=== PATIENT | female | born 1975 | race Hispanic/Latino ===

== ENCOUNTER 2017-11-10 18:00 | Emergency (ER) | payer BC, OTHER ==
[2017-11-10 18:22] VITALS: RESP 18; TEMP 98.3; O2SAT 100; BMI 22.3
[2017-11-10] MEDS ORDERED: DiphenhydrAMINE 50 mg/ml Inj IVP STA (18:42)
--- NOTE | 2017-11-10 18:44 | ED PDOC ---
Arrival/HPI - General Time Seen by Provider: 11/10/17 18:32 Historian: Patient - History of Present Illness Narrative History of Present Illness (Text): 11/10/17 18:39 Patient is a 42 year old female with a past medical history of asthma and seasonal allergies, who presents to the Emergency department complaining of chest tightness today. Patient reports that she received an allergy injection in her right arm earlier today by her associate publisher. She subsequently returned home where she started to experience chills, lightheadedness, chest tightness and "gagging sensation", which have improved. Patient reports experiencing similar symptoms in the past. Patient reports she has not taken any Benadryl, which was suggested by her associate publisher. Patient denies any fever, rashes, nausea, vomiting, abdominal pain, shortness of breath, lower extremity edema/pain, and any other complaints at this time. Patient denies any recent travel. PMD: Dr. Bella Time/Duration: Other (Earlier today) Quality: Tightness (chest tightness) Context: Other (After receiving an allergy injection) Past Medical History - Provider Review Nursing Documentation Reviewed: Yes - Infectious Disease Hx of Infectious Diseases: None - Cardiac Hx Cardiac Disorders: No - Pulmonary Hx Respiratory Disorders: Yes Hx Asthma: Yes Hx Bronchitis: Yes - Neurological Hx Neurological Disorder: No - HEENT Hx HEENT Disorder: No - Renal Hx Renal Disorder: No - Endocrine/Metabolic Hx Endocrine Disorders: No - Hematological/Oncological Hx Blood Disorders: No - Integumentary Hx Dermatological Disorder: No - Musculoskeletal/Rheumatological Hx Musculoskeletal Disorders: No Hx Falls: No - Gastrointestinal Hx Gastrointestinal Disorders: No - Genitourinary/Gynecological Hx Genitourinary Disorders: No Other/Comment: MISCARRIAGE X1 - Psychiatric Hx Psychophysiologic Disorder: No Hx Substance Use: No - Surgical History Hx Appendectomy: Yes Other/Comment: TONSILLECTOMY - Anesthesia Hx Anesthesia: Yes Hx Anesthesia Reactions: No Hx Malignant Hyperthermia: No Family/Social History - Physician Review Nursing Documentation Reviewed: Yes Family/Social History: No Known Family HX Smoking Status: Never Smoked Hx Alcohol Use: No Hx Substance Use: No Allergies/Home Meds Allergies/Adverse Reactions: Allergies No Known Allergies Allergy (Verified 10/07/15 11:59) Home Medications: Home Meds Medication Instructions Recorded Confirmed Levocetirizine Dihydrochloride 5 mg PO DAILY 11/10/17 11/10/17 [Xyzal] Review of Systems - Physician Review All systems were reviewed & negative as marked: Yes - Review of Systems Constitutional: Night Sweats. absent: Fevers ENT: Other (gagging sensation) Respiratory: Cough. absent: SOB Cardiovascular: Chest Pain (chest tightness). absent: Edema Gastrointestinal: absent: Abdominal Pain, Nausea, Vomiting Neurological: Other (Lightheadedness) Physical Exam Vital Signs Reviewed: Yes Vital Signs Temp Pulse Resp BP Pulse Ox 11/10/17 20:53 62 18 108/72 100 11/10/17 18:21 98.3 F 53 L 18 128/76 100 Temperature: Afebrile Blood Pressure: Normal Pulse: Bradycardic Respiratory Rate: Normal Appearance: Positive for: Well-Appearing, Non-Toxic, Comfortable Pain Distress: None Mental Status: Positive for: Alert and Oriented X 3 - Systems Exam Head: Present: Atraumatic, Normocephalic Pupils: Present: PERRL Extroacular Muscles: Present: EOMI Conjunctiva: Present: Normal Mouth: Present: Moist Mucous Membranes Neck: Present: Normal Range of Motion Respiratory/Chest: Present: Clear to Auscultation, Good Air Exchange. No: Respiratory Distress, Accessory Muscle Use Cardiovascular: Present: Regular Rate and Rhythm, Normal S1, S2. No: Murmurs Abdomen: No: Tenderness, Distention, Peritoneal Signs Back: Present: Normal Inspection Upper Extremity: Present: Normal Inspection. No: Cyanosis, Edema, Swelling (No swelling at site of allergy injection (right arm)) Lower Extremity: Present: Normal Inspection. No: Edema Neurological: Present: GCS=15, CN II-XII Intact, Speech Normal Skin: Present: Warm, Dry, Normal Color. No: Rashes Psychiatric: Present: Alert, Oriented x 3, Normal Insight, Normal Concentration Medical Decision Making ED Course and Treatment: 11/10/17 18:52 Impression: Patient is a 42 year old female who complains of chest tightness and lightheadedness s/p allergy injection. Patient notes symptoms have improved. Differential Diagnosis included but are not limited to: ACS vs Anxiety vs Allergic Reaction Plan: -- Chest xray -- EKG -- Labs -- Aspirin and Benadryl -- Reassess and disposition Progress Notes: Labs reviewed. Patient has a negative troponin. She was given Pepcid for epigastric/chest burning sensation. After treatment and reevaluation, patient felt much better and no longer had symptoms. No rash. No trouble breathing. No chest pain. Patient will follow up with primary care doctor in 1-2days. Advised to return to the ED if symptoms worsen or any other concern. - Lab Interpretations Lab Results: 11/10/17 19:21 11/10/17 19:21 Lab Results 11/10/17 19:21: Sodium 140, Potassium 3.8, Chloride 102, Carbon Dioxide 26, Anion Gap 16, BUN 13, Creatinine 0.7, Est GFR ( Amer) > 60, Est GFR (Non- Af Amer) > 60, Random Glucose 86, Calcium 9.7, Magnesium 1.9, Total Bilirubin 0.4, AST 30, ALT 28, Alkaline Phosphatase 55, Lactate Dehydrogenase 377, Total Creatine Kinase 61, Troponin I < 0.01, Total Protein 7.7, Albumin 4.6, Globulin 3.1, Albumin/Globulin Ratio 1.5 11/10/17 19:21: WBC 6.3, RBC 4.41, Hgb 13.8, Hct 41.2, MCV 93.4, MCH 31.3, MCHC 33.5, RDW 12.8, Plt Count 209, MPV 9.8, Gran % 49.1 L, Lymph % (Auto) 40.4 H, Mills % (Auto) 8.7 H, Eos % (Auto) 1.6, Baso % (Auto) 0.2, Gran # 3.09, Lymph # ( Auto) 2.5, Mills # (Auto) 0.6, Eos # (Auto) 0.1, Baso # (Auto) 0.01 I have reviewed the lab results: Yes - RAD Interpretation Radiology Orders: 11/10/17 18:42 CHEST PORTABLE [RAD] Stat - Medication Orders Current Medication Orders: Discontinued Medications Aspirin (Aspirin) 325 mg PO STAT STA Stop: 11/10/17 18:42 Last Admin: 11/10/17 19:26 Dose: Diphenhydramine HCl (Benadryl) 50 mg IVP STAT STA Stop: 11/10/17 18:43 Last Admin: 11/10/17 19:27 Dose: 50 mg IVP Administration Document 11/10/17 19:27 SF (Rec: 11/10/17 19:27 SF [facility] [email or web address] Charges for Administration # of IVP Administrations 1 Famotidine (Pepcid 20mg/50ml Premix) 20 mg in 50 mls @ 100 mls/hr IVPB STAT STA Stop: 11/10/17 20:52 Last Admin: 11/10/17 21:02 Dose: 100 mls/hr eMAR Start Stop Document 11/10/17 21:02 SF (Rec: 11/10/17 21:02 [email or web address]) Intravenous Solution Start Date 11/10/17 Start Time 21:02 End Date 11/10/17 End time 21:32 Total Infusion Time 30 - Scribe Statement The provider has reviewed the documentation as recorded by the Scribe Dany Palm training under Sally Smith Provider Scribe Attestation: All medical record entries made by the Scribe were at my direction and personally dictated by me. I have reviewed the chart and agree that the record accurately reflects my personal performance of the history, physical exam, medical decision making, and the department course for this patient. I have also personally directed, reviewed, and agree with the discharge instructions and disposition. Disposition/Present on Arrival - Present on Arrival Any Indicators Present on Arrival: No History of DVT/PE: No History of Uncontrolled Diabetes: No Urinary Catheter: No History Surgical Site Infection Following: None - Disposition Have Diagnosis and Disposition been Completed?: Yes Diagnosis: Chest pain Disposition: HOME/ ROUTINE Disposition Time: 21:14 Patient Plan: Discharge Condition: IMPROVED Discharge Instructions (ExitCare): Chest Pain (ED) Additional Instructions: Ms Soto, thank you for letting us take care of you today. Your provider was Dr. Duenas. You were treated for Chest Pain. The emergency medical care you received today was directed at your acute symptoms. If you were prescribed any medication, please fill it and take as directed. It may take several days for your symptoms to resolve. Return to the Emergency Department if your symptoms worsen, do not improve, or if you have any other problems. Please contact your doctor or call one of the physicians/clinics you have been referred to that are listed on the Patient Visit Information form that is included in your discharge packet. Bring any paperwork you were given at discharge with you along with any medications you are taking to your follow up visit. Our treatment cannot replace ongoing medical care by a primary care provider (PCP) outside of the emergency department. Thank you for allowing the [facility] team to be part of your care today. If you had an X-Ray or CT scan: A Radiologist will review the ED reading if any change in treatment is needed we will contact you. If you had a blood, urine, or wound culture: It will take several days for the results, if any change in treatment is needed we will contact you. If you had an STI test: It will take 48 hours for the results. Please call after 1 week if you have not heard back. Prescriptions: Acetaminophen [Tylenol 325mg tab] 650 mg PO Q4 #60 tab DiphenhydrAMINE [Benadryl] 50 mg PO Q4 PRN #30 cap PRN Reason: Allergy Symptoms Famotidine [Pepcid] 20 mg PO DAILY #30 tab Referrals: Kenya Bella MD [Medical Doctor] - Follow up with primary Forms: [facility] (Bengali), WORK NOTE
[2017-11-10 19:38] LABS: BASO # 0.01 K/mm3 (0.0-2.0); BASO % 0.2 % (0.0-3.0); EOS # 0.1 (0.0-0.7); EOS % 1.6 % (1.5-5.0); GRAN # 3.09 (1.4-6.5); GRAN % 49.1 % (50.0-68.0); HEMOGLOBIN 13.8 g/dL (12.0-16.0); LYMPH # 2.5 (1.2-3.4); LYMPH % 40.4 % (22.0-35.0); MEAN CELL VOLUME 93.4 fl (80.0-105.0); MEAN CORPUSCULAR HEMOGLOBIN 31.3 pg (25.0-35.0); MEAN CORPUSCULAR HGB CONC 33.5 g/dl (31.0-37.0); MEAN PLATELET VOLUME 9.8 fl (7.0-11.0); MONO # 0.6 (0.1-0.6); MONO % 8.7 % (1.0-6.0); RBC 4.41 10^6/uL (3.5-6.1); RED CELL DISTRIBUTION WIDTH 12.8 % (11.5-14.5); WHITE BLOOD COUNT 6.3 10^3/ul (4.5-11.0)
[2017-11-10 20:00] LABS: ALB/GLOB RATIO 1.5 (1.1-1.8); ALBUMIN 4.6 g/dL (3.0-4.8); ALT/SGPT 28 U/L (7-56); AST/SGOT 30 U/L (14-36); BLOOD UREA NITROGEN 13 mg/dL (7-21); CALCIUM 9.7 mg/dL (8.4-10.5); GFR AFRICAN-AMERICAN > 60; GFR NON-AFRICAN AMERICAN > 60
[2017-11-10 20:19] LABS: TROPONIN I < 0.01 ng/mL
[2017-11-10] MEDS ORDERED: Famotidine 20mg/50ml 20 MG/50 ML BAG IVPB STA (20:23)
[2017-11-10 20:55] VITALS: BP 108/72; PULSE 62
--- NOTE | 2017-11-11 08:49 | RAD ---
HISTORY: Chest pain COMPARISON: 10/07/2015. FINDINGS: LUNGS: The lungs are well inflated and clear. PLEURA: No significant pleural effusion identified, no pneumothorax apparent. CARDIOVASCULAR: Normal. OSSEOUS STRUCTURES: No significant abnormalities. VISUALIZED UPPER ABDOMEN: Normal. OTHER FINDINGS: None. IMPRESSION: No active pulmonary disease.
--- NOTE | 2017-11-11 19:32 | CARD ---
APPROVED REPORT EKG Measurement Heart [id number] <Conclusion> Sinus bradycardia Otherwise normal ECG
== END 2017-11-10 21:14 | disposition home or self-care (01) ==
LOC: ED 18:00
DX: R07.9 Chest pain, unspecified (principal)
CPT/HCPCS: 71045; 80053; 82550; 83615; 83735; 84484; 85025; 93005; 96365; 96375; 99285; J1200